=== PATIENT | male | born 1995 | race Caucasian/White ===

== ENCOUNTER 2024-02-27 09:00 | Outpatient (CLI) | payer OTHER ==
[~2024-02-27 09:00] MED LIST: Gadobenate Dimeglumine 2 ML, Sodium Chloride 0.9% 250 ML 10 ML, Iopamidol 8 ML, Lidocai... FS ONE
== END 2024-02-27 09:01 | disposition home or self-care (01) ==
LOC: CSHRAD 09:00
DX: M94.8X1 Other specified disorders of cartilage, shoulder (principal); S43.431A Superior glenoid labrum lesion of right shoulder, initial encounter; S43.491A Other sprain of right shoulder joint, initial encounter; M24.011 Loose body in right shoulder
CPT/HCPCS: 23350; 77002; A9577; J0171; J7050; Q9967